=== PATIENT | male | born 1945 | race Caucasian/White ===

== ENCOUNTER 2017-01-02 03:42 | Emergency (ER) | payer OTHER, MEDICARE ==
[~2017-01-02] VITALS: Ht 182.9 cm; Wt 103.4 kg
[~2017-01-02 03:42] MED LIST: ASPIRIN81 M1 PO; CIPROFLOXACIN500 M1 PO; COUMADIN4 MG PO; DESOWEN TP; EPIPEN ADU0.3 MG/0.3 IM; KETOCONAZOLE120 ML TP; KETOCONAZOLE60 GM TP; LISINOPRIL40 MG PO; METAMUCIL PACKE1 PKT PO; METOPROLOL TART25 MG PO; NITROGLYCERIN0.4 MG SL; SIMVASTATIN80 MG PO; TERAZOSIN HCL2 MG PO; TRAZODONE HCL100 MG PO
[2017-01-02] MEDS ORDERED: ERYTHROMYCIN O3.5 GM RIGHT EYE (05:17)
[2017-01-02 05:49] VITALS: BP 125/78
== END 2017-01-02 05:50 | disposition home or self-care (01) ==
LOC: EME 03:42
DX: S05.01XA Injury of conjunctiva and corneal abrasion without foreign body, right eye, initial encounter (principal); E78.5 Hyperlipidemia, unspecified; I10 Essential (primary) hypertension; I25.10 Atherosclerotic heart disease of native coronary artery without angina pectoris; Z86.718 Personal history of other venous thrombosis and embolism; Z79.82 Long term (current) use of aspirin; Z79.01 Long term (current) use of anticoagulants; Z87.891 Personal history of nicotine dependence
CPT/HCPCS: 99281; 99284

== ENCOUNTER 2017-04-18 05:25 | Day surgery (SDC) | payer OTHER, MEDICARE ==
[~2017-04-18] VITALS: Ht 182.9 cm; Wt 102.0 kg
[~2017-04-18 05:25] MED LIST changes: +ERYTHROMYCIN O3.5 GM RIGHT EYE; +GOLD BOND MEDI113 GM TP; +LISINOPRIL10 MG PO; +LOVENOX100 MG/1 M SC; +MELATONIN5 M1 PO; +METAMUCIL POWD798 GM PO; +PRESERVISION S1 EACH PO
[2017-04-18] MEDS ORDERED: COLACE100 MG PO ×2 (05:54→10:16)
[2017-04-18 06:01] VITALS: BP 124/74
[2017-04-18 06:42] LABS: PROTHROMBIN TIME 12.5 (9.2-11.2); PTT 28.9 (25-32)
[2017-04-18 06:48] LABS: INTER. NORMALIZED RATIO 1.2
[2017-04-18] MEDS ORDERED: NORCO 5/3251 TABLET PO (10:16)
[2017-04-18 11:12] VITALS: BP 131/77
[2017-04-18 12:08] VITALS: BP 117/73
[2017-04-18 14:20] VITALS: BP 120/78
[2017-04-18 17:15] VITALS: BP 118/62
== END 2017-04-18 17:33 | disposition home or self-care (01) ==
LOC: SDC 05:25
PROVIDERS: Surgery
DX: K40.90 Unilateral inguinal hernia, without obstruction or gangrene, not specified as recurrent (principal); K42.9 Umbilical hernia without obstruction or gangrene; D17.6 Benign lipomatous neoplasm of spermatic cord; I25.10 Atherosclerotic heart disease of native coronary artery without angina pectoris; N40.0 Benign prostatic hyperplasia without lower urinary tract symptoms; Z86.718 Personal history of other venous thrombosis and embolism; D68.51 Activated protein C resistance; K21.9 Gastro-esophageal reflux disease without esophagitis; K44.9 Diaphragmatic hernia without obstruction or gangrene; I10 Essential (primary) hypertension; H91.90 Unspecified hearing loss, unspecified ear; E78.5 Hyperlipidemia, unspecified; G47.9 Sleep disorder, unspecified; Z86.19 Personal history of other infectious and parasitic diseases; Z79.82 Long term (current) use of aspirin; Z79.01 Long term (current) use of anticoagulants; Z87.891 Personal history of nicotine dependence; Z82.49 Family history of ischemic heart disease and other diseases of the circulatory system; Z83.3 Family history of diabetes mellitus; Z88.8 Allergy status to other drugs, medicaments and biological substances; Z88.7 Allergy status to serum and vaccine; Z91.030 Bee allergy status
CPT/HCPCS: 85610; 85730; J0330; J1100; J1170; J2405; J2710; J3010

== ENCOUNTER 2018-03-11 03:41 | Observation (INO) | payer OTHER, MEDICARE ==
[~2018-03-11] VITALS: Ht 182.9 cm; Wt 99.7 kg
[~2018-03-11 03:41] MED LIST changes: +COLACE100 MG PO; +NORCO 5/3251 TABLET PO
[2018-03-11 04:07] LABS: HEMATOCRIT 45.3 % (38.0-50.0); HEMOGLOBIN 15.3 G/DL (12.5-16.6); MCH 31.2 PG (29.0-34.0); MCHC 33.8 G/DL (30.0-36.0); MCV 92.4 FL (86-99); PLATELET COUNT 144 K/uL (156-360); RBC DIS.WIDTH-CV 13.3 % (11.8-14.6); RBC DIS.WIDTH-SD 45.2 % (39-53); WHITE BLOOD COUNT 6.4 K/uL (4.1-10.2)
[2018-03-11 04:21] LABS: CHLORIDE 106 mEq/L (99-109); POTASSIUM 4.3 mEq/L (3.7-5.4); SODIUM 141 mEq/L (136-147)
[2018-03-11 04:23] LABS: GLUCOSE 103 mg/dL (70-99)
[2018-03-11 04:26] LABS: GFR ESTIMATE (CALCULATED) > 59 mL/min/ (58.99-99999)
[2018-03-11 04:27] LABS: UREA NITROGEN (BUN) 16 mg/dL (9-23)
[2018-03-11 04:29] LABS: TROP-I INTERPRETATION NEGATIVE; TROPONIN-I 0.02 ng/mL (0.0-0.30)
[2018-03-11 08:31] VITALS: BP 132/70
[2018-03-11 10:04] LABS: TROP-I INTERPRETATION NEGATIVE; TROPONIN-I < 0.01 ng/mL (0.0-0.30)
[2018-03-11 11:55] VITALS: BP 102/58
[2018-03-11] MEDS ORDERED: XARELTO20 MG PO (13:51)
[2018-03-11 14:33] LABS: TROP-I INTERPRETATION NEGATIVE; TROPONIN-I < 0.01 ng/mL (0.0-0.30)
[2018-03-11 15:32] VITALS: BP 113/67
== END 2018-03-11 16:12 | disposition home or self-care (01) ==
LOC: EME 03:41 → EDOF 06:00 → ENRESERV 06:01 → 4SOUTH 08:10
PROVIDERS: Hospitalist
PROC: B246ZZZ Ultrasonography of Right and Left Heart (ICD-10-PCS; principal; 2018-03-11)
DX: R07.9 Chest pain, unspecified (principal); I10 Essential (primary) hypertension; D68.51 Activated protein C resistance; D68.2 Hereditary deficiency of other clotting factors; Z86.718 Personal history of other venous thrombosis and embolism; Z86.711 Personal history of pulmonary embolism; Z79.01 Long term (current) use of anticoagulants; I71.2 Thoracic aortic aneurysm, without rupture; E78.5 Hyperlipidemia, unspecified; M19.90 Unspecified osteoarthritis, unspecified site; I25.10 Atherosclerotic heart disease of native coronary artery without angina pectoris; I27.20 Pulmonary hypertension, unspecified; I51.7 Cardiomegaly; Z95.828 Presence of other vascular implants and grafts; Z90.49 Acquired absence of other specified parts of digestive tract; Z82.49 Family history of ischemic heart disease and other diseases of the circulatory system; Z79.82 Long term (current) use of aspirin; Z87.440 Personal history of urinary (tract) infections; Z88.0 Allergy status to penicillin; Z88.1 Allergy status to other antibiotic agents; Z88.5 Allergy status to narcotic agent; Z91.030 Bee allergy status; Z88.7 Allergy status to serum and vaccine
CPT/HCPCS: 71046; 71275; 80048; 84484; 85027; 93005; 93306; 99281; 99285; G0378; J3010